=== PATIENT | male | born 1985 | race African-American/Black ===

== ENCOUNTER 2019-01-29 02:18 | Emergency (ER) | payer OTHER ==
[~2019-01-29] VITALS: Ht 182.9 cm; Wt 122.3 kg
[2019-01-29 02:20] VITALS: BP 125/75; PULSE 101; RESP 20; Ht 182.9 cm; Wt 122.3 kg
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
[2019-01-29] MEDS ORDERED: ASPIRIN 81 MG TAB PO ONE (03:30)
[2019-01-29] MEDS ORDERED: FLUO20CA38 PO (03:56)
[2019-01-29] MEDS ORDERED: BUPR-75 PO (03:56)
[2019-01-29] MEDS ORDERED: HYDR50TA15 PO (03:57)
[2019-01-29] MEDS ORDERED: LORA1TAB PO (03:58)
[2019-01-29] MEDS ORDERED: IBUP800T48 PO (03:59)
[2019-01-29] MEDS ORDERED: DIAZEPAM 2 MG TAB PO ONE (04:00)
[2019-01-29] MEDS ORDERED: FLUOXETINE 20 MG CAP PO ONE (04:00)
== END 2019-01-29 04:17 | disposition home or self-care (01) ==
LOC: FTE 02:18
DX: F41.9 Anxiety disorder, unspecified (principal); R07.9 Chest pain, unspecified; J45.909 Unspecified asthma, uncomplicated; F17.210 Nicotine dependence, cigarettes, uncomplicated
CPT/HCPCS: Z7502; Z7610; 93005

== ENCOUNTER 2019-02-01 23:51 | Emergency (ER) | payer SELFPAY ==
[~2019-02-01] VITALS: Wt 122.0 kg
[~2019-02-01 23:51] MED LIST: BUPR-75 PO; FLUO20CA38 PO; HYDR50TA15 PO; IBUP800T48 PO; LORA1TAB PO
[2019-02-01 23:56] VITALS: BP 153/79; PULSE 104; RESP 22
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
[2019-02-02] MEDS ORDERED: CARI350T29 PO (04:15)
== END 2019-02-02 06:58 | disposition home or self-care (01) ==
LOC: E/R 23:51
DX: F19.10 Other psychoactive substance abuse, uncomplicated (principal); F41.9 Anxiety disorder, unspecified; Z87.891 Personal history of nicotine dependence
CPT/HCPCS: 80053; 80307; 85025; 99283

== ENCOUNTER 2019-02-03 11:00 | Emergency (ER) | payer OTHER ==
[~2019-02-03] VITALS: Ht 170.2 cm; Wt 122.9 kg
[~2019-02-03 11:00] MED LIST changes: +CARI350T29 PO
[2019-02-03 11:02] VITALS: BP 125/72; PULSE 93; RESP 18; Ht 170.2 cm; Wt 122.9 kg
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
== END 2019-02-03 12:40 | disposition left against medical advice (07) ==
LOC: FTE 11:00
DX: R53.83 Other fatigue (principal)
CPT/HCPCS: 99282